=== PATIENT | male | born 1990 | race Caucasian/White ===

== ENCOUNTER → 2021-07-09 08:45 | Outpatient (CLI) | payer OTHER, SELFPAY ==
--- NOTE | ~2021-07-09 | US_ITS ---
EXAMINATION: US abdomen complete DATE: 07/09/2021 09:44 INDICATION: Generalized abdominal pain. TECHNIQUE: Multiple grayscale and Doppler ultrasound images of the abdomen were obtained. COMPARISON: None FINDINGS: The visualized portions of the head, body, and tail of the pancreas are normal. Abdominal a elio is normal in caliber. Inferior vena cava is normal. The liver is normal without focal lesion. No liver surface nodularity. There is normal flow in main portal vein. The gallbladder is normal in siz e. No gallstones or gallbladder wall thickening. There was no sonographic Mckinney sign. The common beverly t is normal and measures 3 mm. The kidneys are normal in size. The spleen is normal in size. IMPRESSION: 1. Normal complete abdomen ultrasound. Reviewed, dictated and finalized at location [facility]
== END ==
PROVIDERS: PCP Nurse Practitioner Family; Visit Provider Nurse Practitioner Family
DX: R10.30 Lower abdominal pain, unspecified (principal)
CPT/HCPCS: 76700

== ENCOUNTER 2021-10-05 00:11 | Day surgery (SDC) | payer OTHER, SELFPAY ==
[2021-09-21 13:30] VITALS: BMI 27.6
[2021-10-05 10:30] VITALS: BP 102/56; PULSE 78; RESP 18; TEMP 36.8; O2SAT 98; BMI 26.9
[2021-10-05] MEDS: LACTATED RINGERS 1,000 ML 150 ML IV CONT (10:58)
--- NOTE | 2021-10-05 11:12 | WPDANESEPPF ---
Anes - Initial Pre Proc Eval Procedure: Operation Date: 10/05/21 12:30 Proposed Procedures p Colonoscopy - Elvis Coleman MD Date/Time: 10/05/21 11:12 Surgeon: Elvis Coleman MD Pre Op Diagnosis: Rectal bleeding, rectal pressure Patient Data Age: 31 Gender: M Height: 1.8 m Weight: 87.6 kg Last Vital Signs Temp 98.2 F 10/05/21 10:30 Pulse 78 10/05/21 10:30 Resp 18 10/05/21 10:30 BP 102/56 L 10/05/21 10:30 Pulse Ox 98 10/05/21 10:30 Allergies Allergy/AdvReac Type Severity Reaction Status Date / Time No Known Allergies Allergy Verified 10/05/21 10:41 Home Medications Medication Instructions Recorded Confirmed Type hydrocortisone 2.5 % topical cream 1 applic RECTAL DAILY PRN #30 g 08/26/21 10/05/21 Rx with perineal applicator Patient hx anesthesia problems: none Family hx anesthesia problems: none Results Review: All pre-operative results and documents have been reviewed as part of the pre-operative evaluation. [facility] Family History Family History (Updated 08/26/21 @ 08:51 by Ameena Edwards CMA) Grandparent Hypertension Heart disease Cerebrovascular accident Cancer Father Hypertension Mother Cancer Social History Social History (Updated 08/26/21 @ 08:52 by Ameena Edwards CMA) Smoking status: Never smoker Alcohol intake: current Drinks per week: 1 Substance use type: does not use Living arrangements: with family Spiritual care concerns: No Anes - Eval Final PreProcedure Day of Procedure 10/05/21 11:12 Patient weight: normal Heart: regular rate and rhythm Lungs: clear to auscultation Airway: Mallampati scale class II Neurological: alert and oriented Last oral intake: >/= 8 hours ASA classification: I Emergent: no Anesthetic plan: proceed Anesthesia type and monitoring: general GIVS and standard monitoring Results Review: All pre-operative results and documents have been reviewed as part of the pre-operative evaluation. Informed Consent: The patient's anesthetic plan and its attendant risks and benefits were discussed with the patient/family/POA. Questions were solicited and answers provided to the satisfaction of the patient/family/POA.
--- NOTE | 2021-10-05 12:20 | PM.HPGS ---
History of Present Illness History of Present Illness Consent: Risks, benefits, and alternatives have been discussed and questions answered. Patient agrees to proceed with procedure. Chief complaint: Rectal bleeding, rectal pressure Narrative: Rafal Fowler is a 31 year old male with rectal pressure and intermittent blood in stools, never had colonoscopy Review of Systems Constitutional: Constitutional: Denies headache(s) and Denies weakness Eyes: Eyes: Denies blurry vision ENT: Reports Normal hearing present, Denies headache(s) and Denies neck pain Cardiovascular: Cardiovascular: Denies chest pain and Denies dyspnea Respiratory: Respiratory: Denies dyspnea Gastrointestinal: Gastrointestinal: Reports no additional gastrointestinal complaints Genitourinary: Genitourinary: Denies dysuria Musculoskeletal: Musculoskeletal: Denies neck pain Integumentary/Breasts: Skin/Breast: Denies dry skin Neurologic: Reports Normal hearing present, Denies headache(s) and Denies weakness Psychiatric: Psychiatric: Denies anxiety Endocrine: Endocrine: Denies change in body appearance Hematologic/Lymphatic: Hematologic/Lymphatic: Denies easy bleeding Allergic/Immunologic: Allergic/Immunologic: Denies urticaria [facility] Past Medical History Medical History (Updated 10/05/21 @ 12:21 by Elvis Coleman MD) Blood in stool Family History Family History (Updated 08/26/21 @ 08:51 by Ameena Edwards CMA) Grandparent Hypertension Heart disease Cerebrovascular accident Cancer Father Hypertension Mother Cancer Social History Social History (Updated 08/26/21 @ 08:52 by Ameena Edwards CMA) Smoking status: Never smoker Alcohol intake: current Drinks per week: 1 Substance use type: does not use Living arrangements: with family Spiritual care concerns: No Meds Home Medications and Allergies Home Medications Medication Instructions Recorded Confirmed Type hydrocortisone 2.5 % topical cream 1 applic RECTAL DAILY PRN #30 g 08/26/21 10/05/21 Rx with perineal applicator Allergies Allergy/AdvReac Type Severity Reaction Status Date / Time No Known Allergies Allergy Verified 10/05/21 10:41 Vital Signs Vital Signs - 24 hr 10/05/21 10:30 Temperature 98.2 F Pulse Rate 78 Respiratory Rate 18 Blood Pressure 102/56 L Pulse Oximetry 98 Exam Const: General: comfortable and no acute distress HENMT: General nose exam: Normal nares present Eyes: General: appearance normal, both eyes and all related structures Neck: Neck: no JVD Resp: Auscultation: clear to auscultation bilaterally Cardio: Rate: regular rate Rhythm: regular rhythm GI: Inspection: non-distended GI Palp: Yes Soft to palpation Skin: General skin exam: normal color Neuro: General: gait normal Speech: normal speech Extrem: General: normal to inspection Psych: Mental Status: mental status grossly normal Assessment and Plan Assessment and plan (1) Blood in stool: Code(s): K92.1 - Melena Status: Acute Assessment and Plan: probably perianal but will assess with colonoscopy
[2021-10-05 12:36] VITALS: BP 86/45; PULSE 79; RESP 20; O2SAT 97
[2021-10-05 12:46] VITALS: BP 92/49; PULSE 68; RESP 19; O2SAT 99
[2021-10-05 12:56] VITALS: BP 100/59; PULSE 67; RESP 20; O2SAT 100
== END 2021-10-05 13:10 | disposition home or self-care (01) ==
PROVIDERS: PCP Nurse Practitioner Family; Visit Provider Internal Medicine Gastroenterology
PROC: 0DJD8ZZ Inspection of Lower Intestinal Tract, Via Natural or Artificial Opening Endoscopic (ICD-10-PCS; CPT 45378; principal; 2021-10-05 12:30)
DX: K92.1 Melena (principal); K64.8 Other hemorrhoids
CPT/HCPCS: 45378; J2704; J7120